=== PATIENT | female | born 1985 | race Caucasian/White ===

== ENCOUNTER 2017-06-18 21:07 | Inpatient (IN) | payer OTHER ==
[2017-06-18 21:59] LABS: Appearance,Urine Clear (Clear); Bilirubin,Urine Negative (Negative); Glucose,Urine (UA) Negative (Negative); Ketones,Urine Negative (Negative); Leukocyte Esterase,Urine Negative (Negative); Nitrite,Urine Negative (Negative); PH, Urine 5.5 (5.0-8.0); Protein,Urine Negative (Negative); Specific Gravity,Urine 1.001 (1.001-1.035); UA Billing (MACRO vs. MICRO) CHEM; Urobilinogen,Urine <2.0 mg/dL (<2.0)
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
[2017-06-18 22:02] LABS: Basophils # (A) 0.1 k/uL (0-0.2); Basophils % (A) 1 %; CH 33.3; CHCM 33.8; Eosinophils # (A) 0.2 k/uL (0-0.7); Eosinophils % (A) 2 %; HCT 39.2 % (34.0-46.0); HDW 2.06; HGB 12.9 gm/dL (11.4-16.0); Luc # (Auto) 0.23; Luc % (Auto) 2; Lymphocytes # (A) 3.4 k/uL (1.0-4.8); Lymphocytes % (A) 34 %; MCH 32.5 pg (25.0-35.0); MCHC 32.8 g/dL (31.0-37.0); MCV 99.1 fL (80.0-100.0); Mean Platelet Volume 7.9; Monocytes # (A) 0.5 k/uL (0-1.0); Monocytes % (A) 5 %; Neutrophils # (A) 5.6 k/uL (1.3-7.7); Neutrophils % (A) 56 %; RBC 3.95 m/uL (3.80-5.40); RDW 13.6 % (11.5-15.5); WBC (Perox) 10.06
[2017-06-18 22:11] LABS: Acetaminophen <10.0 ug/mL; Salicylate <1.0 mg/dL
[2017-06-18 22:13] LABS: Alcohol 135 mg/dL
--- NOTE | 2017-06-18 22:22 | CT ---
EXAM: CT Head Without Intravenous Contrast CLINICAL HISTORY: Headache TECHNIQUE: Axial computed tomography images of the head/brain without intravenous contrast. DLP is 1036.00 mGy-cm. This CT exam was performed using one or more of the following dose reduction techniques: automated exposure control, adjustment of the mA and/or kV according to patient size, and/or use of iterative reconstruction technique. COMPARISON: No relevant prior studies available. FINDINGS: Brain: Unremarkable. No hemorrhage. No significant white matter disease. No edema. Ventricles: Unremarkable. No ventriculomegaly. Bones/joints: Unremarkable. No acute fracture. Soft tissues: Unremarkable. Sinuses: Unremarkable as visualized. No acute sinusitis. Mastoid air cells: Unremarkable as visualized. No mastoid effusion. IMPRESSION: No evidence of acute intracranial hemorrhage or acute transcortical infarct.
[2017-06-19 00:36] LABS: ALT 50 U/L (9-52); AST 30 U/L (14-36); Alkaline Phosphatase 64 U/L (38-126); Anion Gap 14 mmol/L; Blood Urea Nitrogen 11 mg/dL (7-17); Carbon Dioxide 19 mmol/L (22-30); Chloride 110 mmol/L (98-107); Glucose 100 mg/dL (74-99); Non-African American GFR(MDRD) >60 (>60 ml/min/1.73 sqM); Potassium 3.6 mmol/L (3.5-5.1); Sodium 143 mmol/L (137-145); Total Bilirubin 0.2 mg/dL (0.2-1.3); Total Protein 6.9 g/dL (6.3-8.2)
[2017-06-19] MEDS ORDERED: MAG HYDROX/AL HYDROX/SIMETH 30 ML CUP PO PRN (04:56)
[2017-06-19] MEDS ORDERED: ZIPRASIDONE 20 MG VIAL IM PRN (04:56)
[2017-06-19] MEDS ORDERED: MAGNESIUM HYDROXIDE 2,400 MG/10 ML CUP PO PRN (04:56)
[2017-06-19] MEDS ORDERED: LORazepam 2 MG/ML SYRINGE IM PRN (05:00)
[2017-06-19 10:00] LABS: ALT 46 U/L (9-52); AST 28 U/L (14-36); Alkaline Phosphatase 62 U/L (38-126); Basophils % (A) 0 %; Blood Urea Nitrogen 7 mg/dL (7-17); Calcium 9.3 mg/dL (8.4-10.2); Chloride 109 mmol/L (98-107); Eosinophils # (A) 0.1 k/uL (0-0.7); Eosinophils % (A) 2 %; Glucose 98 mg/dL (74-99); HCT 42.3 % (34.0-46.0); HDW 2.05; HGB 13.7 gm/dL (11.4-16.0); Luc # (Auto) 0.23; Luc % (Auto) 3; Lymphocytes # (A) 2.6 k/uL (1.0-4.8); Lymphocytes % (A) 32 %; MCH 32.4 pg (25.0-35.0); MCHC 32.3 g/dL (31.0-37.0); MCV 100.3 fL (80.0-100.0); Mean Platelet Volume 7.3; Monocytes # (A) 0.3 k/uL (0-1.0); Monocytes % (A) 4 %; Neutrophils # (A) 4.8 k/uL (1.3-7.7); Neutrophils % (A) 60 %; Non-African American GFR(MDRD) >60 (>60 ml/min/1.73 sqM); Potassium 4.3 mmol/L (3.5-5.1); RBC 4.22 m/uL (3.80-5.40); Sodium 141 mmol/L (137-145); Total Bilirubin 0.3 mg/dL (0.2-1.3); Total Protein 7.1 g/dL (6.3-8.2); WBC (Perox) 8.13
[2017-06-19 10:15] LABS: Anion Gap 9 mmol/L; Carbon Dioxide 23 mmol/L (22-30)
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
[2017-06-19] MEDS: ARIPiprazole 15 MG TAB PO SCH (11:28)
[2017-06-19] MEDS: ACETAMINOPHEN TAB 325 MG TAB PO PRN (16:37)
[2017-06-20] MEDS: ARIPiprazole 15 MG TAB PO SCH (08:32)
--- NOTE | 2017-06-20 09:42 | P.PN ---
Progress Note - Text Interval history: The patient is found ambulating in the hallway she follows me to an interview room. She reports that she slept last night staff recorded 7 hours. She reports appetite is stable. She continues to demonstrate symptoms of russell. When asked what her goal for the day is she states "organic". She states that she is due to [place] [facility] in [place] very soon but she is not sure which of 2 men she will pick. She describes being on Sirisha alert. She has a variety of disorganized thoughts based on delusions. She is unable to stay on topic despite the question asked. Mental status exam: The patient is a thin shorter statured female. She is dressed in her own clothing the same as yesterday. She has an eyebrow piercing. Eye contact is appropriate speech is fluent pressured. Thought process demonstrates loose associations and flight of ideas. She endorses no auditory or visual hallucinations but appears to continue having delusional thoughts that are disorganized in nature. Insight and judgment is impaired. She demonstrates no abnormal involuntary movements she demonstrates no verbal or physical aggressiveness. Affect is labile. She does not provide a relevant answer when asked if she is having any suicidal ideation. Plan: Bipolar 1 disorder most recent manic with psychosis: Continue Abilify 15 mg daily. She has complied with yesterday's and today's dose. We are waiting a deferral conference. We will continue to monitor her for safety and provide reality orientation when possible and encourage appropriate participation in the milieu. Vital signs and lab results reviewed.
[2017-06-21] MEDS: ARIPiprazole 15 MG TAB PO SCH (08:11)
[2017-06-21] MEDS: ACETAMINOPHEN TAB 325 MG TAB PO PRN (11:15)
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
[2017-06-22] MEDS: ARIPiprazole 15 MG TAB PO SCH (07:59)
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
[2017-06-22] MEDS: ACETAMINOPHEN TAB 325 MG TAB PO PRN (20:03)
[2017-06-23] MEDS: ARIPiprazole 15 MG TAB PO SCH (08:27)
--- NOTE | 2017-06-23 09:37 | P.PN ---
Progress Note - Text Interval history: The patient is found in group she follows me to an interview room. She demonstrates continuous speech and total interrupted. 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 He states that she does found out that she has been featured in numerous movies. She spends several minutes discussing how Onelia Dao is not her name and she refers to herself as Fahad. Notes from over the weekend were reviewed. An attempt was made to increase the Abilify however she was reluctant. She is more accepting of the idea today. Mental status exam: The patient is a short statured thin female she is dressed in the same clothing eye contact is appropriate speech is spontaneous pressured verbose. Thought process demonstrates tangential thinking loose association and flight of ideas. She is focused on grandiose delusions today. Insight and judgment are impaired. She demonstrates no verbal or physical aggressiveness she reports no suicidal or homicidal ideation intent or plan. She is endorsing no auditory or visual hallucinations. She frequently moves while seated in the chair. She demonstrates no abnormal involuntary movements. Affect is labile. Plan: Bipolar 1 disorder most recent manic with psychosis versus schizoaffective disorder bipolar type: The patient will continue on Abilify we will titrate the dose to 20 mg daily. We will verify her deferral status as she does have a court hearing scheduled for tomorrow afternoon. Vital signs reviewed we will continue to monitor her for safety. She continues to demonstrate significant symptoms of russell and psychosis requiring continued hospitalization.
[2017-06-23] MEDS ORDERED: ARIPiprazole 5 MG TAB PO ONE (09:45)
[2017-06-23] MEDS: ACETAMINOPHEN TAB 325 MG TAB PO PRN (11:15)
[2017-06-23 17:18] LABS: Appearance,Urine Clear (Clear); Bilirubin,Urine Negative (Negative); Glucose,Urine (UA) Negative (Negative); Ketones,Urine Negative (Negative); Leukocyte Esterase,Urine Negative (Negative); Nitrite,Urine Negative (Negative); Protein,Urine Negative (Negative); Specific Gravity,Urine 1.003 (1.001-1.035); UA Billing (MACRO vs. MICRO) CHEM; Urobilinogen,Urine <2.0 mg/dL (<2.0)
[2017-06-23] MEDS: LORazepam 1 MG TAB PO PRN (19:17)
--- NOTE | 2017-06-24 09:35 | P.PN ---
Progress Note - Text Interval history: The patient is found in the dining room she follows me to an interview room. For several minutes she speaks about wanting to be called Molly and not Onelia. She has no questions regarding the Abilify we discussed the potential plan of titrating that further or adding another mood stabilizer. She reports she slept last night she states she's been trying to attend groups. Without insight she endorses no racing thoughts. She speaks about a variety of disorganized discharge plans. Mental status exam: The patient is a thin female she is dressed in the same clothing she is a disheveled appearance. Again she has ongoing spontaneous speech she will continue speaking and less interrupted. She interrupts me when I'm speaking. She demonstrates tangential thinking loose associations and flight of ideas. She continues to report persecutory thinking and continues to have grandiose delusions. Insight and judgment are impaired. She demonstrates no abnormal involuntary movements. She demonstrates no verbal or physical aggressiveness. Affect is labile. Plan: Bipolar 1 disorder manic with psychosis versus schizoaffective disorder bipolar type: The patient will continue on the Abilify 20 mg daily we have just increased this medication. We will allow this time to demonstrate efficacy. I will consider titrating the Abilify further and/or adding another mood stabilizer. Based on our conversation today she is only amenable to lithium as an additional medication as she refuses to take Depakote Lamictal Trileptal or Tegretol. Vital signs reviewed. No new lab studies. We'll monitor her for safety and encourage her participation in the milieu. She requires ongoing hospitalization as she requires a structured supervised environment at this time.
[2017-06-24] MEDS: LORazepam 1 MG TAB PO PRN (20:19)
[2017-06-25] MEDS: ACETAMINOPHEN TAB 325 MG TAB PO PRN ×2 (08:05→15:33)
--- NOTE | 2017-06-25 09:26 | P.PN ---
Progress Note - Text Interval history: The patient is found in the hallway she follows me to an interview room. She reports that she slept last evening and it is recorded she slept 7 hours. She indicates her mood is fine she inquires as to when she can be discharged. For the first few moments of the session she was able to answer some questions but as the session progressed she demonstrated ongoing speech which included loose associations and flight of ideas. Again she spontaneously speaks of grandiose themes. She reports that she has been given a house and a helicopter. 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 As a session progressed she appeared more disorganized. Mental status exam: The patient is a thin female she is dressed in the same clothing. She has a disheveled appearance. Eye contact is appropriate she is pleasant she tries to be cooperative. She has ongoing pressured speech demonstrating a disorganized thought process including loose associations and flight of ideas. She is oriented to person place and the correct date. Insight and judgment are impaired. She demonstrates no abnormal involuntary movements. She does have increased psychomotor activity. She demonstrates no verbal or physical aggressiveness. Affect is labile. Plan: Bipolar russell with psychosis versus schizoaffective disorder bipolar type : The patient will continue on Abilify we will titrate the dose to 30 mg daily. She continues to be quite symptomatic and requires continued psychiatric hospitalization and she would not be able to function outside of the hospital in a safe manner. We will continue to monitor her for safety and encourage her participation in the milieu.
[2017-06-25 14:27] VITALS: BMI 19.3
[2017-06-25] MEDS: LORazepam 1 MG TAB PO PRN (15:33)
[2017-06-26] MEDS: ARIPiprazole 15 MG TAB PO SCH (08:22)
--- NOTE | 2017-06-26 09:12 | P.PN ---
Progress Note - Text Interval history: The patient is found in the hallway she follows me to an interview room. She states that she feels more upset today and agitated. He appears more disorganized in conversation compared to yesterday. She states she had a visit from Tobias last evening and he wants her to go to [place] with him. 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 She expresses frustration that people refer to her as if she and describes herself as a unicorn as she was born with both parts. She goes on to describe a number of disorganized delusional beliefs. She was under the belief that she had to be on the mental health unit for 90 days and we clarified the meaning of the deferral agreement. Mental status exam: The patient is a shorter statured thin female she is dressed in the same clothing. Eye contact is appropriate. Today she has ongoing spontaneous speech she has pressured she demonstrates more affect lability including tearfulness. She continues to verbalize grandiose thoughts and persecutory thoughts. Thought process continues to demonstrate flight of ideas. She is redirectable and continues to try to be cooperative. Insight and judgment are impaired. She demonstrates no abnormal involuntary movements. She demonstrates no verbal or physical aggressiveness. Plan: Bipolar 1 disorder manic with psychosis versus schizoaffective disorder bipolar type: The patient will continue on the Abilify which has recently been titrated to 30 mg daily. She continues to be acutely symptomatic and requires continued hospitalization. Vital signs reviewed. Continue to monitor her for safety and encourage her participation in the milieu. The patient is not appropriate for discharge to a lesser level of care at this time.
[2017-06-26] MEDS: LORazepam 1 MG TAB PO PRN ×2 (11:40→20:12)
[2017-06-27] MEDS: ARIPiprazole 15 MG TAB PO SCH (08:45)
--- NOTE | 2017-06-27 09:17 | P.PN ---
Progress Note - Text Interval history: The patient is found in the hallway ambulating, she follows me to an interview room. She states she feels better wearing her hooded sweatshirt as it doesn't look female. 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 She is wearing a cap on her head and she feels that is helping her brain "bounce less" . When discussing discharge planning and where she will follow-up she is able to name several local clinics in individuals who have helped her in the past. She states that [facility]. She continues to report phone contact with various males but again it is unclear the nature of their relationship. She denies having any racing thoughts she endorses no symptoms of psychosis but continues to spontaneously report delusional thoughts. She has no questions or concerns regarding the Abilify. It is documented that she slept 7 hours last night she reports she slept for most of the day yesterday. Mental status exam: The patient is a short statured thin female she is dressed in the same T-shirt and pants she is wearing a hooded sweatshirt and has fashioned a head covering out of what appears to be a shirt eye contact is appropriate. She continues to have ongoing speech she is verbose and mildly pressured at times but does respond to redirection. She continues to try to be cooperative. She demonstrates no verbal or physical aggressiveness. Thought process remains disorganized she demonstrates loose associations flight of ideas. Briefly at the beginning of our session she was more focused and more linear but this did decompensate during the course of the discussion. She reports no suicidal or homicidal ideation. He is endorsing no hallucinations she clearly continues to experience delusional thought. Insight continues to be impaired judgment has improved in the sense that she is compliant with medication and has been directable. Plan: Bipolar 1 disorder russell with psychosis versus schizoaffective disorder bipolar type, the patient will continue on the Abilify 30 mg daily we will continue to monitor for safety and encourage her participation in the milieu she has not yet appropriate for discharge from mental health unit. Vital signs reviewed.
[2017-06-27] MEDS: LORazepam 1 MG TAB PO PRN ×3 (09:19→21:50)
[2017-06-28] MEDS: ARIPiprazole 15 MG TAB PO SCH (08:46)
[2017-06-28] MEDS: LORazepam 1 MG TAB PO PRN ×2 (09:41→17:26)
--- NOTE | 2017-06-28 11:43 | P.PN ---
Progress Note - Text Interval history: The patient is found in the hallway she follows me to an interview room. She reports sleeping last night. She continues to have racing thoughts and finds it difficult to concentrate. She continues to make bizarre bizarre statements as part of her disorganized thought process. She remains compliant with medication vital signs reviewed. She anticipates a visit from her friend Tobias this evening. Mental status exam: The patient is a female appearing her stated age she is dressed in her own clothing which is different than previous days. Eye contact is appropriate she is chewing gum she frequently moves while seated in her chair she is endorsing no suicidal or homicidal ideation. She continues to have pressured spontaneous speech thought process is disorganized she demonstrates tangential thinking and loose associations. She demonstrates no abnormal involuntary movements she demonstrates no verbal or physical aggressiveness. Insight and judgment impaired. Plan: Pili with psychosis: The patient will continue on the Abilify is written we will continue to monitor for safety and encourage her participation in the milieu she requires continued psychiatric hospitalization.
[2017-06-29] MEDS: ARIPiprazole 15 MG TAB PO SCH (08:49)
[2017-06-29] MEDS: LORazepam 1 MG TAB PO PRN ×2 (08:49→18:48)
[2017-06-29] MEDS: OXcarbazepine 150 MG TAB PO SCH ×2 (10:17→21:18)
--- NOTE | 2017-06-29 16:21 | P.PN ---
Progress Note - Text Interval history: The patient is found in her room she follows me to an interview room. She states that she had a good visit with her friend Tobias last evening and he plans on coming up again. Apparently he brought clothing with her and she was able to change she spent several minutes discussing her clothing. She continues to make irrelevant bizarre statements. She does continue to struggle with maintaining a linear thought process. She is eating she reports that she slept last night she is demonstrated no agitated behavior. Mental status exam: The patient's is alert she is wearing a button-down shirt with a tank top over that and wearing included sweatshirt area eye contact is appropriate speech is spontaneous mildly pressured at times she is cooperative and redirectable. Thought process remains disorganized. Continues to verbalize delusional thoughts. She demonstrates no verbal or physical aggressiveness. No abnormal involuntary movements. She denies having any suicidal or homicidal ideation intent or plan. Plan: The patient will continue on the Abilify as ordered. We will initiate Trileptal 150 mg twice daily the plan to titrate this further. This is being used as an additional strategy to stabilize her manic symptoms. We will monitor for safety. Baseline liver enzymes are normal. She is encouraged to continue participating in the milieu.
[2017-06-30] MEDS: OXcarbazepine 150 MG TAB PO SCH (08:57)
[2017-06-30] MEDS: ARIPiprazole 15 MG TAB PO SCH (08:57)
[2017-06-30] MEDS: LORazepam 1 MG TAB PO PRN ×2 (08:58→17:45)
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
[2017-06-30] MEDS: OXcarbazepine 300 MG TAB PO SCH (21:21)
[2017-07-01] MEDS: LORazepam 1 MG TAB PO PRN ×2 (09:05→15:43)
[2017-07-01] MEDS: OXcarbazepine 300 MG TAB PO SCH ×2 (09:05→20:48)
[2017-07-01] MEDS: ARIPiprazole 15 MG TAB PO SCH (09:05)
--- NOTE | 2017-07-01 09:53 | P.PN ---
Progress Note - Text Interval history: The patient is found in the hallway she follows me to an interview room. She reports her mood is good. She states she was able to sleep last night but cannot quantify how much. Staff reports she slept 6 hours. Appetite is stable. She remains compliant with her medications the Abilify and Trileptal. She has no questions regarding her medications today. We discussed her plans upon discharge she states she plans on going to [facility] and [facility]. Mental status exam: The patient is alert she is mildly disheveled hygiene is adequate. She is wearing 3 shirts. Eye contact is appropriate speech is fluent she is less pressured today there is still a disorganized quality to her thought process. She spontaneously verbalizes no delusional thought today but with questioning there continues to be some disorganized delusional thought. She is reporting no suicidal or homicidal ideation. Insight and judgment slowly improving. She demonstrates no verbal or physical aggressiveness no abnormal involuntary movements observed. She is oriented to person place month and year. When asked to name the months of the year backwards she initially states she cannot do it with encouragement she tries she names the months forward then corrects herself and is able to name them backwards although she made several errors but she was aware of those and corrected them. Plan: Symptoms of russell and psychosis, the patient will continue on her current medications. It is hard to discern what the patient's baseline function is although I suspect it is symptomatic. Our goal is to achieve as much organization of thought and reduction of psychosis as possible. In some respects there is improvement noted intermittently. We will continue to monitor her for safety and encourage her participation in the milieu. Vital signs reviewed. We will draw a Trileptal level soon
[2017-07-02] MEDS: OXcarbazepine 300 MG TAB PO SCH ×2 (08:20→20:05)
[2017-07-02] MEDS: ARIPiprazole 15 MG TAB PO SCH (08:20)
--- NOTE | 2017-07-02 08:54 | P.PN ---
Progress Note - Text Interval history: The patient is found in the hallway she follows me to an interview room. She reports that she slept last evening. She was informed yesterday that she is on a police hold. She states that it was not her that is in trouble and that she is Molly and not Onelia. Staff report that the patient has been cooperative she's been compliant with groups she was able to maintain focus during groups. They report no agitated behavior. The patient denies any thoughts of self-harm or harm to others. We discussed initiating Abilify maintena she is agreeable. She is asking to be discharged and we discussed she may be appropriate for discharge as soon as tomorrow. Mental status exam: The patient is alert she is dressed in her own clothing hygiene and adequate speech is fluent spontaneous nonpressured. She is pleasant cooperative. She does have spontaneous speech she will have some tangential thinking speech is mildly pressured but she is redirectable. She reports no suicidal ideation intent or plan no homicidal ideation intent or plan. She demonstrates no verbal or physical aggressiveness. She does frequently move all seated in her chair. No abnormal involuntary movements observed. Affect is expansive at times. Plan: We will initiate Abilify maintena 400 mg today we will draw a Trileptal level today. The patient has improved in the sense that she is able to sit through groups without being intrusive she is directable. She is reporting no thoughts of self-harm or harm to others. She does continue to refute that her name is Onelia especially in the context of discussing her pending legal issue. It appears that she does have a symptomatic baseline in terms of overall function. We will consider discharging her tomorrow if there are adequate supportive services.
[2017-07-02] MEDS ORDERED: ARIPiprazole 400 MG VIAL IM ONE (09:00)
[2017-07-02] MEDS: LORazepam 1 MG TAB PO PRN ×2 (12:54→20:34)
[2017-07-03 06:53] VITALS: BP 112/54; PULSE 91; RESP 18; TEMP 98.2
[2017-07-03] MEDS: ARIPiprazole 15 MG TAB PO SCH (07:59)
[2017-07-03] MEDS: OXcarbazepine 300 MG TAB PO SCH (08:00)
--- NOTE | 2017-07-03 09:07 | P.DS ---
Providers Date of admission: 06/19/17 04:53 Expected date of discharge: 07/03/17 Attending physician: Kendrick Ayala Consults: 06/19/17 04:56 Consult Physician Routine Consulting Provider: Sheba Espinoza Consult Reason/Comments: H &P and medical management Do you want consulting provider notified?: Yes Primary care physician: Stated None - Discharge Diagnosis(es) (1) Schizoaffective disorder, bipolar type Current Visit: Yes Status: Acute Priority: High Hospital Course: Brief summary of admission note: This patient is a 32-year-old single female who was admitted to the mental health unit through the emergency room for manic symptoms and psychosis. The patient was petition in the hospital she was described as being angry pressured and intrusive. She was observed to yell and be aggressive. She was making bizarre statements refuting that her name was Onelia. 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 It is reported that the patient was brought in by police and that she was on a police hold. For full details please refer to my psychiatric evaluation dated 06/19/2017. The patient was originally petition to the hospital I did complete a second clinical certificate. She deferred after meeting with her civil rights attorney. I initiated Abilify and the dosage was titrated ultimately to 30 mg daily. During the course of the admission we initiated Trileptal and titrated to 300 mg twice daily. Trileptal level was drawn yesterday morning. The patient demonstrated slow improvement of manic symptoms she did become more directable her agitation subsided she is much less pressured in speech. Some of her delusional thought content has improved however it appears that she may have some baseline delusional thinking. She has not been demonstrating any verbal or physical aggressiveness. She has been attending groups and has been cooperative. We initiated Abilify maintena 400 mg IM yesterday. The patient is on a police hold and will be taken into custody today. Mental status exam: The patient is a shorter statured thin female appearing her stated age. She is dressed in her own clothing hygiene grooming are adequate. Eye contacts appropriate she seated calmly in the chair she demonstrates no agitated behavior. She reports her mood is good and she is looking forward to being discharged. She is reporting no suicidal or homicidal ideation intent or plan she is endorsing no auditory or visual hallucinations. She denies having any paranoid or persecutory thoughts. There is no evidence that she is experiencing hallucinations at this time but she does appear to have some continued delusional thought. Thought process has improved she is able to answer direct questions much better than when she was first admitted at times there is still some disorganization of thought. Again she is very redirectable. She is demonstrating no verbal or physical aggressiveness. She demonstrates no abnormal involuntary movements. She is oriented to person person as Molly place and date. Affect is demonstrating a more appropriate range. It is less expansive during routine sessions. Impressions 1. Schizoaffective disorder bipolar type, rule out alcohol use disorder rule out marijuana use disorder 2. Limited social support, pending legal charges Plan: The patient will be discharged mental health unit today. She will continue on Abilify 30 mg daily for 2 more weeks she has been given the Abilify maintena injection 400 mg yesterday. Trileptal will be continued at 300 mg twice daily we are awaiting the most recent lab results regarding the level. She will follow with [facility] once in the outpatient setting. She is instructed to abstain from any use of alcohol marijuana or any other illicit drug as this can cause a relapse of symptoms and elevate her safety risk. She is instructed to return to the hospital with any acute safety concerns. At this time she sufficiently stabilized to the point where she does not require continued psychiatric hospitalization. Patient Condition at Discharge: Stable Plan - Discharge Summary New Discharge Prescriptions: New ARIPiprazole [Abilify] 30 mg PO DAILY #14 tab ARIPiprazole IM [Abilify Maintena] 400 mg IM QMONTH #1 vial OXcarbazepine [Trileptal] 300 mg PO BID #60 tab Discharge Medication List ARIPiprazole IM [Abilify Maintena] 400 mg IM QMONTH #1 vial 07/03/17 [Rx] ARIPiprazole [Abilify] 30 mg PO DAILY #14 tab 07/03/17 [Rx] OXcarbazepine [Trileptal] 300 mg PO BID #60 tab 07/03/17 [Rx] Follow up Appointment(s)/Referral(s): [facility] [Outside] - 1 Week (Please complete walk-in intake within 2 business day of hospital discharge. Hours: M, W, TH, FRI- 830-3 - 1030-5) None,Stated [Primary Care Provider] - 1-2 days Patient Instructions/Handouts: Brief Psychotic Disorder (GEN) Activity/Diet/Wound Care/Special Instructions: Activity and diet as tolerated. Avoid the use of street drugs and alcohol. Take medications as prescribed. When you are in need of refills on your medication please contact your medical provider and/or outpatient psychiatrist to have this done. Please go to scheduled outpatient appointment for aftercare treatment. If symptoms return or become worse call the crisis line at [phone] and/or go to the nearest emergency room for an evaluation.
== END 2017-07-03 12:38 | disposition home or self-care (01) | DRG 885 ==
LOC: EC 21:07 → 3MHU 06-19 04:53
PROVIDERS: ADMIT Psychiatry & Neurology Psychiatry; ATTEND Psychiatry & Neurology Psychiatry
DX: F25.0 Schizoaffective disorder, bipolar type (principal); F41.1 Generalized anxiety disorder; F10.129 Alcohol abuse with intoxication, unspecified; F17.200 Nicotine dependence, unspecified, uncomplicated; F43.10 Post-traumatic stress disorder, unspecified; F90.9 Attention-deficit hyperactivity disorder, unspecified type; J45.909 Unspecified asthma, uncomplicated; Y90.6 Blood alcohol level of 120-199 mg/100 ml; Z91.5 Personal history of self-harm
CPT/HCPCS: 36415; 70450; 80053; 80183; 80306; 80320; 81003; 81025; 82075; 83520; 84443; 85025; 99285

== ENCOUNTER → 2018-01-08 | Outpatient (CLI) | payer MEDICAID, OTHER ==
--- NOTE | 2018-01-08 12:58 | XR ---
Left knee HISTORY: Left knee pain 3 views of the left knee Correlation to prior left knee dated 11/16/2009 Exam shows a similar appearance. Postop changes are noted status post anterior cruciate ligament repa ir. Alignment, bone mineralization, joint spaces are stable. Difficult to exclude a small joint effus ion. IMPRESSION: Stable postoperative changes.
== END | disposition home or self-care (01) ==
LOC: RADXRMAIN 10:13
PROVIDERS: ATTEND Nurse Practitioner
DX: M25.562 Pain in left knee (principal); Z98.890 Other specified postprocedural states

== ENCOUNTER → 2018-01-26 | Outpatient (CLI) | payer OTHER ==
[2018-01-26 09:08] LABS: Basophils % (A) 0 %; Eosinophils # (A) 0.1 k/uL (0-0.7); Eosinophils % (A) 2 %; HCT 43.9 % (34.0-46.0); HGB 14.5 gm/dL (11.4-16.0); Lymphocytes % (A) 42 %; MCH 31.6 pg (25.0-35.0); MCHC 33.1 g/dL (31.0-37.0); MCV 95.2 fL (80.0-100.0); Mean Platelet Volume 8.2; Monocytes # (A) 0.3 k/uL (0-1.0); Monocytes % (A) 5 %; Neutrophils # (A) 2.3 k/uL (1.3-7.7); Neutrophils % (A) 49 %; Platelet Count 208 k/uL (150-450); RBC 4.61 m/uL (3.80-5.40); RDW 12.6 % (11.5-15.5); WBC 4.8 k/uL (3.8-10.6)
[2018-01-26 09:19] LABS: INR 1.1 (<1.2); Prothrombin Time 10.4 sec (9.0-12.0)
[2018-01-26 09:24] LABS: ALT 82 U/L (9-52); AST 58 U/L (14-36); Albumin 4.6 g/dL (3.5-5.0); Alkaline Phosphatase 64 U/L (38-126); Anion Gap 14 mmol/L; Blood Urea Nitrogen 7 mg/dL (7-17); Calcium 9.8 mg/dL (8.4-10.2); Carbon Dioxide 21 mmol/L (22-30); Chloride 106 mmol/L (98-107); Glucose 86 mg/dL (74-99); Potassium 4.2 mmol/L (3.5-5.1); Sodium 141 mmol/L (137-145); Total Bilirubin 0.4 mg/dL (0.2-1.3); Total Protein 8.1 g/dL (6.3-8.2)
[2018-01-27 15:26] LABS: Hepatits C Virus RNA DETECTED (Not detected); LOG HCV IU/mL 6.36 (<1.08)
== END | disposition home or self-care (01) ==
LOC: LABWHC1 08:43
PROVIDERS: ATTEND Internal Medicine Infectious Disease
DX: B18.2 Chronic viral hepatitis C (principal)
CPT/HCPCS: 36415; 80053; 85025; 85610; 87522

== ENCOUNTER → 2018-03-19 | Outpatient (CLI) | payer OTHER ==
[2018-03-19 10:15] LABS: Basophils % (A) 1 %; Eosinophils # (A) 0.1 k/uL (0-0.7); Eosinophils % (A) 2 %; HCT 39.7 % (34.0-46.0); HGB 13.2 gm/dL (11.4-16.0); Lymphocytes # (A) 2.7 k/uL (1.0-4.8); Lymphocytes % (A) 43 %; MCH 32.8 pg (25.0-35.0); MCHC 33.2 g/dL (31.0-37.0); MCV 98.5 fL (80.0-100.0); Mean Platelet Volume 7.6; Monocytes # (A) 0.3 k/uL (0-1.0); Monocytes % (A) 4 %; Neutrophils # (A) 3.1 k/uL (1.3-7.7); Neutrophils % (A) 49 %; Platelet Count 210 k/uL (150-450); RBC 4.03 m/uL (3.80-5.40); RDW 12.5 % (11.5-15.5); WBC 6.4 k/uL (3.8-10.6)
[2018-03-19 10:34] LABS: Anion Gap 13 mmol/L; Blood Urea Nitrogen 11 mg/dL (7-17); Calcium 9.4 mg/dL (8.4-10.2); Carbon Dioxide 24 mmol/L (22-30); Chloride 106 mmol/L (98-107); Glucose 81 mg/dL (74-99); Potassium 4.1 mmol/L (3.5-5.1); Sodium 143 mmol/L (137-145)
== END | disposition home or self-care (01) ==
LOC: LABWHC1 09:48 → EEVIPCON 09:48
PROVIDERS: ATTEND Internal Medicine Infectious Disease
DX: B18.2 Chronic viral hepatitis C (principal)
CPT/HCPCS: 36415; 80048; 85025; 87522

== ENCOUNTER → 2018-05-13 | Outpatient (CLI) | payer OTHER ==
[2018-05-13 08:45] LABS: Basophils % (A) 0 %; Eosinophils # (A) 0.1 k/uL (0-0.7); Eosinophils % (A) 2 %; HCT 39.8 % (34.0-46.0); Lymphocytes # (A) 2.1 k/uL (1.0-4.8); Lymphocytes % (A) 41 %; MCH 31.8 pg (25.0-35.0); MCHC 32.5 g/dL (31.0-37.0); MCV 97.9 fL (80.0-100.0); Mean Platelet Volume 7.3; Monocytes # (A) 0.2 k/uL (0-1.0); Monocytes % (A) 4 %; Neutrophils # (A) 2.6 k/uL (1.3-7.7); Neutrophils % (A) 51 %; Platelet Count 215 k/uL (150-450); RBC 4.07 m/uL (3.80-5.40); RDW 11.9 % (11.5-15.5); WBC 5.1 k/uL (3.8-10.6)
[2018-05-13 09:03] LABS: ALT 27 U/L (9-52); AST 20 U/L (14-36); Anion Gap 10 mmol/L; Blood Urea Nitrogen 8 mg/dL (7-17); Calcium 9.4 mg/dL (8.4-10.2); Carbon Dioxide 23 mmol/L (22-30); Chloride 103 mmol/L (98-107); Glucose 87 mg/dL (74-99); Potassium 4.3 mmol/L (3.5-5.1); Sodium 136 mmol/L (137-145)
[2018-05-14 15:36] LABS: Hepatits C Virus RNA DETECTED (Not detected); Hepatits C Virus RNA, Quant <12 IU/mL (<12); LOG HCV IU/mL <1.08 (<1.08)
== END | disposition home or self-care (01) ==
LOC: LABWHC1 08:18
PROVIDERS: ATTEND Internal Medicine Infectious Disease
DX: B18.2 Chronic viral hepatitis C (principal)
CPT/HCPCS: 36415; 80048; 84450; 84460; 85025; 87522

== ENCOUNTER 2018-06-11 08:43 | Emergency (ER) | payer OTHER ==
--- NOTE | 2018-06-11 09:10 | ED ---
General Adult HPI - General Chief complaint: Psychiatric Symptoms Stated complaint: mental health Time Seen by Provider: 06/11/18 09:03 Source: patient, police, RN notes reviewed Mode of arrival: ambulatory Limitations: no limitations - History of Present Illness Initial comments: Patient 33-year-old female presenting here with [place] police for court order psychiatric evaluation. Patient states she is unsure why she is here. She states she's met all of her appointments and has been taking her medications. Patient denies any suicidal or homicidal thoughts or plans. She denies any other complaints. Patient denies any recent fever, chills, shortness of breath, chest pain, back pain, abdominal pain, nausea or vomiting, numbness or tingling, headaches or visual changes, or any other complaints. - Related Data Previous Rx's Medication Instructions Recorded ARIPiprazole IM [Abilify Maintena] 400 mg IM QMONTH #1 vial 07/03/17 ARIPiprazole [Abilify] 30 mg PO DAILY #14 tab 07/03/17 OXcarbazepine [Trileptal] 300 mg PO BID #60 tab 07/03/17 Allergies Allergy/AdvReac Type Severity Reaction Status Date / Time Beef Containing Products Allergy Unknown Verified 06/11/18 08:49 bupropion HCl Allergy Unknown Verified 06/11/18 08:49 [From Wellbutrin] loratadine [From Claritin] Allergy Unknown Verified 06/11/18 08:49 sertraline HCl [From Zoloft] Allergy Unknown Verified 06/11/18 08:49 soybean Allergy Rash/Hives Verified 06/11/18 08:49 venlafaxine [From Effexor] Allergy Unknown Verified 06/11/18 08:49 wheat Allergy Unknown Verified 06/11/18 08:49 egg AdvReac Unknown Verified 06/11/18 08:49 Milk Containing Products AdvReac Unknown Verified 06/11/18 08:49 Review of Systems ROS Statement: Those systems with pertinent positive or pertinent negative responses have been documented in the HPI. ROS Other: All systems not noted in ROS Statement are negative. Past Medical History Past Medical History: Asthma Additional Past Medical History / Comment(s): denies History of Any Multi-Drug Resistant Organisms: MRSA Date of last positivie culture/infection: 10/18/2012 MDRO Source:: Unknown Past Surgical History: Section Additional Past Surgical History / Comment(s): left knee pinning with Dr. Wong secondary to patellar fracture ACL injury history of asthma suspected of having periodic limb movement disorder Past Anesthesia/Blood Transfusion Reactions: No Reported Reaction Past Psychological History: ADD/ADHD, PTSD Smoking Status: Current every day smoker Past Alcohol Use History: Unable to Obtain, Occasional Past Drug Use History: Marijuana General Exam - General Exam Comments Initial Comments: General: The patient is awake and alert, in no distress, and does not appear acutely ill. Eye: extra-ocular movements are intact. No nystagmus. There is normal conjunctiva bilaterally. No signs of icterus. Ears, nose, mouth and throat: There are moist mucous membranes and no oral lesions. Neck: The neck is supple Cardiovascular: There is a regular rate and rhythm. No murmur, rub or gallop is appreciated. Respiratory: Lungs are clear to auscultation, respirations are non-labored, breath sounds are equal. No wheezes, stridor, rales, or rhonchi. Musculoskeletal: Normal ROM, no tenderness. Sensation intact. Neurological: A&O x 3. CN II-XII intact, There are no obvious motor or sensory deficits. Coordination appears grossly intact. Speech is normal. Skin: Skin is warm and dry and no rashes or lesions are noted. Psychiatric: Cooperative, appropriate mood & affect, normal judgment. Limitations: no limitations Course Vital Signs 06/11/18 08:46 Temperature 98 F Pulse Rate 79 Respiratory 16 Rate Blood Pressure 131/79 O2 Sat by Pulse 99 Oximetry Medical Decision Making - Medical Decision Making Patient's urinalysis reviewed by [facility]. They recommend the patient may be discharged home to follow up outpatient. Patient denies any suicidal or homicidal thoughts or plans. Patient is agreeable with plan. Will return for any other concerns. - Lab Data Lab Results 06/11/18 06/11/18 Range/Units 09:40 09:40 Urine HCG, Qual Not Detected (Not Detectd) Urine Opiates Screen Not Detected (NotDetected) Ur Oxycodone Screen Not Detected (NotDetected) Urine Methadone Screen Not Detected (NotDetected) Ur Propoxyphene Screen Not Detected (NotDetected) Ur Barbiturates Screen Not Detected (NotDetected) U Tricyclic Antidepress Detected H (NotDetected) Ur Phencyclidine Scrn Not Detected (NotDetected) Ur Amphetamines Screen Not Detected (NotDetected) U Methamphetamines Scrn Not Detected (NotDetected) U Benzodiazepines Scrn Not Detected (NotDetected) Urine Cocaine Screen Not Detected (NotDetected) U Marijuana (THC) Screen Not Detected (NotDetected) Disposition Clinical Impression: Evaluation by psychiatric service required, Schizoaffective disorder, bipolar type Narrative: Please follow-up with community mental health as discussed. Please return to emergency room if the symptoms increase or worsen or for any other concerns. Disposition: HOME SELF-CARE Condition: Good Instructions: Schizoaffective Disorder (ED) Additional Instructions: Please follow-up with the community mental health as discussed. Please return to emergency room if the symptoms increase or worsen or for any other concerns. Is patient prescribed a controlled substance at d/c from ED?: No Referrals: [facility] [Primary Care Provider] - 1-2 days Time of Disposition: 11:57
[2018-06-11 10:11] LABS: Amphetamine Screen,Urine Not Detected (NotDetected); Barbiturate Screen,Urine Not Detected (NotDetected); Benzodiazepines Screen,Urine Not Detected (NotDetected); Cocaine Screen,Urine Not Detected (NotDetected); Methadone Screen, Urine Not Detected (NotDetected); Opiate Screen,Urine Not Detected (NotDetected); Oxycodone Screen, Urine Not Detected (NotDetected); Phencyclidine Screen,Urine Not Detected (NotDetected); Tricyclic Antidepressant,Urine Detected (NotDetected); Urn Cannabinoid Scrn Not Detected (NotDetected)
[2018-06-11 12:40] VITALS: BP 134/70; PULSE 67; RESP 18; TEMP 96.9
== END 2018-06-11 12:39 | disposition home or self-care (01) ==
LOC: EC 08:43
DX: F25.0 Schizoaffective disorder, bipolar type (principal); F90.9 Attention-deficit hyperactivity disorder, unspecified type; F43.10 Post-traumatic stress disorder, unspecified; F17.200 Nicotine dependence, unspecified, uncomplicated; Z86.14 Personal history of Methicillin resistant Staphylococcus aureus infection; Z91.018 Allergy to other foods; Z88.8 Allergy status to other drugs, medicaments and biological substances; Z91.012 Allergy to eggs; Z91.011 Allergy to milk products
CPT/HCPCS: 80306; 81025; 82075; 99283

== ENCOUNTER → 2018-07-01 | Outpatient (CLI) | payer OTHER | LOC: LABWHC1 08:28 | PROVIDERS: ATTEND Psychiatry & Neurology Psychiatry | DX: T50.905A Adverse effect of unspecified drugs, medicaments and biological substances, initial encounter (principal) | CPT/HCPCS: 36415; 84146 ==

== ENCOUNTER → 2018-08-12 | Outpatient (CLI) | payer OTHER ==
[2018-08-12 15:25] LABS: Basophils % (A) 0 %; Eosinophils # (A) 0.1 k/uL (0-0.7); Eosinophils % (A) 1 %; HGB 12.9 gm/dL (11.4-16.0); Lymphocytes # (A) 2.6 k/uL (1.0-4.8); Lymphocytes % (A) 27 %; MCH 32.7 pg (25.0-35.0); MCHC 32.2 g/dL (31.0-37.0); MCV 101.4 fL (80.0-100.0); Mean Platelet Volume 7.1; Monocytes # (A) 0.6 k/uL (0-1.0); Monocytes % (A) 6 %; Neutrophils # (A) 6.5 k/uL (1.3-7.7); Neutrophils % (A) 66 %; Platelet Count 196 k/uL (150-450); RBC 3.95 m/uL (3.80-5.40); WBC 9.9 k/uL (3.8-10.6)
[2018-08-12 19:00] LABS: Anion Gap 8.7 mmol/L (4.00-12.00); Carbon Dioxide 23.3 mmol/L (21.6-31.8); Potassium 3.9 mmol/L (3.5-5.5)
[2018-08-13 15:31] LABS: Hepatits C Virus RNA Not detected (Not detected); Hepatits C Virus RNA, Quant <12 IU/mL (<12); LOG HCV IU/mL <1.08 (<1.08)
== END ==
LOC: LABWHC1 14:46
PROVIDERS: ATTEND Internal Medicine Infectious Disease
DX: B18.2 Chronic viral hepatitis C (principal)
CPT/HCPCS: 36415; 80048; 85025; 87522

== ENCOUNTER 2020-06-09 18:00 | Emergency (ER) | payer OTHER ==
[2020-06-09 18:16] VITALS: RESP 18; TEMP 98.3
--- NOTE | 2020-06-09 18:47 | ED ---
General Adult HPI - General Chief complaint: Arrhythmia/Palpitations Stated complaint: Chest pain Time Seen by Provider: 06/09/20 18:22 Source: patient Mode of arrival: ambulatory Limitations: no limitations - History of Present Illness Initial comments: Dictation was produced using [employer] dictation software. please excuse any grammatical, word or spelling errors. This patient was cared for during a federal and state declared state of emergency secondary to Covid 19 Chief Complaint: 35-year-old female presents with palpitations and chest pain. History of Present Illness: 35-year-old female she presents today with palpitations and chest pain. Patient states that her symptoms began today. Patient states she has a pressure-like sensation over her sternum. She states that she has been taking these pills given to her by her boyfriend. She does not know exactly what they are. She reports that they're white and she was discussing that there were caffeine pills however she is not entirely sure. She states he started feeling like her heart is racing. Patient has any history of cardiac disease. Denies any worsening of her symptoms with deep inspiration. The ROS documented in this emergency department record has been reviewed and confirmed by me. Those systems with pertinent positive or negative responses have been documented in the HPI. All other systems are other negative and/or noncontributory. PHYSICAL EXAM: General Impression: Alert and oriented x3, not in acute distress HEENT: Normocephalic atraumatic, extra-ocular movements intact, pupils equal and reactive to light bilaterally, mucous membranes moist. Cardiovascular: Heart regular rate and rhythm Chest: Able to complete full sentences, no retractions, no tachypnea Abdomen: abdomen soft, non-tender, non-distended, no organomegaly Musculoskeletal: Pulses present and equal in all extremities, no peripheral edema Motor: no focal deficits noted Neurological: CN II-XII grossly intact, no focal motor or sensory deficits noted Skin: Intact with no visualized rashes Psych: Anxious ED course: 35-year-old female presents with chest pain and palpitations. Patient states she was given a pill from her boyfriend that she thinks is caffeine pills. Patient does drink coffee regularly. Laboratory evaluation obtained. Metabolic panel is unremarkable. Tox labs are negative. No Acidosis. Patient observed in the emergency department with stable vital signs. EKGs benign. Patient be discharged. No concerns for toxicity given that patient ingested pills that were unknown. EKG interpretation: Ventricular rate 85, normal sinus rhythm, DE interval 118, QRS 94, QTC 445. No DE prolongation, no QTC prolongation, no ST or T-wave changes noted. EKG compared to 10/08/2014 showing no changes. Overall, this EKG is unremarkable - Related Data Previous Rx's Medication Instructions Recorded ARIPiprazole IM [Abilify Maintena] 400 mg IM QMONTH #1 vial 07/03/17 ARIPiprazole [Abilify] 30 mg PO DAILY #14 tab 07/03/17 OXcarbazepine [Trileptal] 300 mg PO BID #60 tab 07/03/17 Allergies Allergy/AdvReac Type Severity Reaction Status Date / Time Beef Containing Products Allergy Unknown Verified 06/09/20 18:16 bupropion HCl Allergy Unknown Verified 06/09/20 18:16 [From Wellbutrin] loratadine [From Claritin] Allergy Unknown Verified 06/09/20 18:16 sertraline HCl [From Zoloft] Allergy Unknown Verified 06/09/20 18:16 soybean Allergy Rash/Hives Verified 06/09/20 18:16 venlafaxine [From Effexor] Allergy Unknown Verified 06/09/20 18:16 wheat Allergy Unknown Verified 06/09/20 18:16 egg AdvReac Unknown Verified 06/09/20 18:16 Milk Containing Products AdvReac Unknown Verified 06/09/20 18:16 Review of Systems ROS Statement: Those systems with pertinent positive or pertinent negative responses have been documented in the HPI. ROS Other: All systems not noted in ROS Statement are negative. Past Medical History Past Medical History: Asthma Additional Past Medical History / Comment(s): denies History of Any Multi-Drug Resistant Organisms: MRSA Date of last positivie culture/infection: 10/18/2012 MDRO Source:: Unknown Past Surgical History: Section Additional Past Surgical History / Comment(s): left knee pinning with Dr. Wong secondary to patellar fracture ACL injury Past Anesthesia/Blood Transfusion Reactions: No Reported Reaction Past Psychological History: ADD/ADHD, PTSD Smoking Status: Current every day smoker Past Alcohol Use History: None Reported Past Drug Use History: None Reported General Exam Limitations: no limitations Course Vital Signs 06/09/20 18:13 Temperature 98.3 F Pulse Rate 100 Respiratory 18 Rate Blood Pressure 137/87 O2 Sat by Pulse 99 Oximetry Medical Decision Making - Lab Data Result diagrams: 06/09/20 19:10 Lab Results 06/09/20 06/09/20 06/09/20 Range/Units 19:09 19:10 19:10 Sodium 133 L (137-145) mmol/L Potassium 4.8 (3.5-5.1) mmol/L Chloride 104 (98-107) mmol/L Carbon Dioxide 20 L (22-30) mmol/L Anion Gap 9 mmol/L BUN 3 L (7-17) mg/dL Creatinine 0.47 L (0.52-1.04) mg/dL Est GFR (CKD-EPI)AfAm >90 (>60 ml/min/1.73 sqM) Est GFR (CKD-EPI)NonAf >90 (>60 ml/min/1.73 sqM) Glucose 110 H (74-99) mg/dL Calcium 9.4 (8.4-10.2) mg/dL Magnesium 1.8 (1.6-2.3) mg/dL Urine HCG, Qual Not Detected (Not Detectd) Salicylates <1.0 mg/dL Urine Opiates Screen Not Detected (NotDetected) Ur Oxycodone Screen Not Detected (NotDetected) Urine Methadone Screen Not Detected (NotDetected) Ur Propoxyphene Screen Not Detected (NotDetected) Acetaminophen <10.0 ug/mL Ur Barbiturates Screen Not Detected (NotDetected) U Tricyclic Antidepress Not Detected (NotDetected) Ur Phencyclidine Scrn Not Detected (NotDetected) Ur Amphetamines Screen Not Detected (NotDetected) U Methamphetamines Scrn Not Detected (NotDetected) U Benzodiazepines Scrn Not Detected (NotDetected) Urine Cocaine Screen Not Detected (NotDetected) U Marijuana (THC) Screen Not Detected (NotDetected) Disposition Clinical Impression: Palpitations Disposition: HOME SELF-CARE Condition: Good Instructions (If sedation given, give patient instructions): Heart Palpitations (ED) Is patient prescribed a controlled substance at d/c from ED?: No Referrals: [facility] [Primary Care Provider] - 1-2 days Time of Disposition: 20:08
[2020-06-09 19:42] LABS: Acetaminophen <10.0 ug/mL; African American GFR (CKD) >90 (>60 ml/min/1.73 sqM); Anion Gap 9 mmol/L; Blood Urea Nitrogen 3 mg/dL (7-17); Calcium 9.4 mg/dL (8.4-10.2); Carbon Dioxide 20 mmol/L (22-30); Chloride 104 mmol/L (98-107); Glucose 110 mg/dL (74-99); Magnesium 1.8 mg/dL (1.6-2.3); Non-African American GFR(CKD) >90 (>60 ml/min/1.73 sqM); Salicylate <1.0 mg/dL; Sodium 133 mmol/L (137-145)
[2020-06-09 19:47] LABS: Amphetamine Screen,Urine Not Detected (NotDetected); Barbiturate Screen,Urine Not Detected (NotDetected); Benzodiazepines Screen,Urine Not Detected (NotDetected); Cocaine Screen,Urine Not Detected (NotDetected); Methadone Screen, Urine Not Detected (NotDetected); Opiate Screen,Urine Not Detected (NotDetected); Oxycodone Screen, Urine Not Detected (NotDetected); Phencyclidine Screen,Urine Not Detected (NotDetected); Tricyclic Antidepressant,Urine Not Detected (NotDetected); Urn Cannabinoid Scrn Not Detected (NotDetected)
[2020-06-09 20:02] LABS: Potassium 4.8 mmol/L (3.5-5.1)
[2020-06-09 20:08] LABS: Basophils % (A) 0 %; Eosinophils # (A) 0.1 k/uL (0-0.7); Eosinophils % (A) 1 %; HCT 37.7 % (34.0-46.0); HGB 12.5 gm/dL (11.4-16.0); Lymphocytes # (A) 1.7 k/uL (1.0-4.8); Lymphocytes % (A) 24 %; MCH 32.4 pg (25.0-35.0); MCHC 33.1 g/dL (31.0-37.0); MCV 97.8 fL (80.0-100.0); Mean Platelet Volume 7.1; Monocytes # (A) 0.3 k/uL (0-1.0); Monocytes % (A) 5 %; Neutrophils # (A) 4.9 k/uL (1.3-7.7); Neutrophils % (A) 69 %; Platelet Count 267 k/uL (150-450); RBC 3.85 m/uL (3.80-5.40); RDW 12.4 % (11.5-15.5); WBC 7.1 k/uL (3.8-10.6)
[2020-06-09 20:15] VITALS: BP 125/80; PULSE 90
== END 2020-06-09 20:15 | disposition home or self-care (01) ==
LOC: EC 18:00
DX: R00.2 Palpitations (principal); R07.9 Chest pain, unspecified; F17.200 Nicotine dependence, unspecified, uncomplicated; Z91.018 Allergy to other foods; Z88.8 Allergy status to other drugs, medicaments and biological substances; Z91.011 Allergy to milk products; Z91.012 Allergy to eggs
CPT/HCPCS: 36415; 93005; 80048; 83735; 85025; 81025; 80306; 83520; 99285; G0480; 80329

== ENCOUNTER 2020-12-24 18:59 | Emergency (ER) | payer OTHER ==
[2020-12-24 19:04] VITALS: RESP 18; TEMP 97.6
--- NOTE | 2020-12-24 19:23 | ED ---
General Adult HPI - General Chief complaint: Skin/Abscess/Foreign Body Stated complaint: Cough, Vomiting Time Seen by Provider: 12/24/20 19:05 Source: patient Mode of arrival: ambulatory Limitations: no limitations - History of Present Illness Initial comments: Dictation was produced using [employer] dictation software. please excuse any grammatical, word or spelling errors. This patient was cared for during a federal and state declared state of emergency secondary to Covid 19 Chief Complaint: 35-year-old female past medical history of psychiatric disease. She states she's had a truncal rash for several weeks. History of Present Illness: 5-year-old female presents with chronic rash. She's had this rash for several weeks. She had a prior to being administered the Covid 19 vaccine. States that it's smiley pruritic. She lives at a transitional home. She's been living at transitional for the last several years. Denies any numbness distally paresthesia of the extremities. Denies any mouth involvement. She changed her soap. The ROS documented in this emergency department record has been reviewed and confirmed by me. Those systems with pertinent positive or negative responses have been documented in the HPI. All other systems are other negative and/or noncontributory. PHYSICAL EXAM: General Impression: Alert and oriented x3, not in acute distress HEENT: Normocephalic atraumatic, extra-ocular movements intact, pupils equal and reactive to light bilaterally, mucous membranes moist. Cardiovascular: Heart regular rate and rhythm Chest: Able to complete full sentences, no retractions, no tachypnea Abdomen: abdomen soft, non-tender, non-distended, no organomegaly Musculoskeletal: Pulses present and equal in all extremities, no peripheral edema Motor: no focal deficits noted Neurological: CN II-XII grossly intact, no focal motor or sensory deficits noted Skin: Papular rash, seeing the abdomen, chest, back and proximal thighs, no rash involvement of the palms. Or oral mucosa. Psych: Normal affect and mood ED course: 35 yo female clinical presentation consistent with nonspecific dermatitis. May be secondary to soap changes. Given its location is likely contact dermatitis. Some mucous membrane involvement. No signs or symptoms of life-threatening rash. Vital signs upon arrival are within acceptable limits. Patient discharged. She is given prescription for Benadryl when necessary pruritus. - Related Data Previous Rx's Medication Instructions Recorded ARIPiprazole IM [Abilify Maintena] 400 mg IM QMONTH #1 vial 07/03/17 ARIPiprazole [Abilify] 30 mg PO DAILY #14 tab 07/03/17 OXcarbazepine [Trileptal] 300 mg PO BID #60 tab 07/03/17 diphenhydrAMINE [Benadryl] 25 mg PO BID PRN #12 capsule 12/24/20 Allergies Allergy/AdvReac Type Severity Reaction Status Date / Time Beef Containing Products Allergy Unknown Verified 12/24/20 19:05 bupropion HCl Allergy Unknown Verified 12/24/20 19:05 [From Wellbutrin] loratadine [From Claritin] Allergy Unknown Verified 12/24/20 19:05 sertraline HCl [From Zoloft] Allergy Unknown Verified 12/24/20 19:05 soybean Allergy Rash/Hives Verified 12/24/20 19:05 venlafaxine [From Effexor] Allergy Unknown Verified 12/24/20 19:05 wheat Allergy Unknown Verified 12/24/20 19:05 egg AdvReac Unknown Verified 12/24/20 19:05 Milk Containing Products AdvReac Unknown Verified 12/24/20 19:05 Review of Systems ROS Statement: Those systems with pertinent positive or pertinent negative responses have been documented in the HPI. ROS Other: All systems not noted in ROS Statement are negative. Past Medical History Past Medical History: Asthma Additional Past Medical History / Comment(s): denies History of Any Multi-Drug Resistant Organisms: MRSA Date of last positivie culture/infection: 10/18/2012 MDRO Source:: Unknown Past Surgical History: Section Additional Past Surgical History / Comment(s): left knee pinning with Dr. Wong secondary to patellar fracture ACL injury Past Anesthesia/Blood Transfusion Reactions: No Reported Reaction Past Psychological History: ADD/ADHD, PTSD Smoking Status: Current every day smoker Past Alcohol Use History: None Reported Past Drug Use History: None Reported General Exam Limitations: no limitations Course Vital Signs 12/24/20 19:01 Temperature 97.6 F Pulse Rate 90 Respiratory 18 Rate Blood Pressure 140/91 O2 Sat by Pulse 100 Oximetry Disposition Clinical Impression: Rash Disposition: HOME SELF-CARE Condition: Good Instructions (If sedation given, give patient instructions): Acute Rash (ED) Prescriptions: diphenhydrAMINE [Benadryl] 25 mg PO BID PRN #12 capsule PRN Reason: Itching Is patient prescribed a controlled substance at d/c from ED?: No Referrals: David Rojo MD [STAFF PHYSICIAN] - 1-2 days Time of Disposition: 19:23
[2020-12-24 19:49] VITALS: BP 128/100; PULSE 87
== END 2020-12-24 19:49 | disposition home or self-care (01) ==
LOC: EC 18:59
DX: R21 Rash and other nonspecific skin eruption (principal); F17.200 Nicotine dependence, unspecified, uncomplicated; Z88.8 Allergy status to other drugs, medicaments and biological substances; Z91.011 Allergy to milk products; Z91.012 Allergy to eggs; Z91.018 Allergy to other foods; Z91.048 Other nonmedicinal substance allergy status; Z86.14 Personal history of Methicillin resistant Staphylococcus aureus infection
CPT/HCPCS: 99282

== ENCOUNTER 2024-12-31 12:56 | Emergency (ER) | payer OTHER ==
--- NOTE | 2024-12-31 13:10 | ED ---
General Adult HPI - General Source: patient, RN notes reviewed Mode of arrival: ambulatory Limitations: no limitations <Marita Lester - Last Filed: 12/31/24 13:09> <Marlene Bunch - Last Filed: 12/31/24 16:03> - General Stated complaint: Medication issue Time Seen by Provider: 12/31/24 13:09 - History of Present Illness Initial comments: Quick note: 39-year-old female presented to the ER for evaluation of the shakes. She reports for the past 6 weeks she has been also having hot flashes. Patient gets Prolyxal biweekly and recently had an increased dose. (Marita Lester) This is a 39-year-old female with a history of schizophrenia and anxiety presenting to emergency department for tremors. Patient states that over the past few months she has been experiencing intermittent tremors in addition to worsening anxiety. Patient receives a injection of Prolyxal every other week with a recent increase in dose a few months ago. Patient believes that she may be having side effects due to this. Patient is denying suicidal, homicidal ideation, auditory visual hallucinations. She denies difficulty breathing, chest pain, heart palpitations, dizziness, lightheadedness. Denies recent falls or injuries. Denies confusion or focal neurological deficits. Denies drug or alcohol use. (Marlene Bunch) - Related Data Previous Rx's Medication Instructions Recorded ARIPiprazole IM [Abilify Maintena] 400 mg IM QMONTH #1 vial 07/03/17 ARIPiprazole [Abilify] 30 mg PO DAILY #14 tab 07/03/17 OXcarbazepine [Trileptal] 300 mg PO BID #60 tab 07/03/17 diphenhydrAMINE [Benadryl] 25 mg PO BID PRN #12 capsule 12/24/20 Allergies Allergy/AdvReac Type Severity Reaction Status Date / Time Beef Containing Products Allergy Unknown Verified 12/24/20 19:05 bupropion HCl Allergy Unknown Verified 12/24/20 19:05 [From Wellbutrin] loratadine [From Claritin] Allergy Unknown Verified 12/24/20 19:05 sertraline HCl [From Zoloft] Allergy Unknown Verified 12/24/20 19:05 soybean Allergy Rash/Hives Verified 12/24/20 19:05 venlafaxine [From Effexor] Allergy Unknown Verified 12/24/20 19:05 wheat Allergy Unknown Verified 12/24/20 19:05 egg AdvReac Unknown Verified 12/24/20 19:05 Milk Containing Products AdvReac Unknown Verified 12/24/20 19:05 (Dairy) [Milk Containing Products] Review of Systems ROS Other: All systems not noted in ROS Statement are negative. <Marita Lester - Last Filed: 12/31/24 13:09> ROS Other: All systems not noted in ROS Statement are negative. <Marlene Bunch - Last Filed: 12/31/24 16:03> ROS Statement: Those systems with pertinent positive or pertinent negative responses have been documented in the HPI. Past Medical History Past Medical History: Asthma Additional Past Medical History / Comment(s): denies History of Any Multi-Drug Resistant Organisms: MRSA Date of last positivie culture/infection: 10/18/2012 MDRO Source:: Unknown Past Surgical History: Section Additional Past Surgical History / Comment(s): left knee pinning with Dr. Wong secondary to patellar fracture ACL injury Past Anesthesia/Blood Transfusion Reactions: No Reported Reaction Past Psychological History: ADD/ADHD, PTSD Smoking Status: Current every day smoker Past Alcohol Use History: None Reported Past Drug Use History: None Reported <Marita Lester - Last Filed: 12/31/24 13:09> General Exam Limitations: no limitations <Marita Lester - Last Filed: 12/31/24 13:09> General appearance: alert, in no apparent distress Eye exam: Present: normal appearance, PERRL, EOMI. Absent: scleral icterus, conjunctival injection, periorbital swelling Neck exam: Present: normal inspection. Absent: tenderness, meningismus, lymphadenopathy Respiratory exam: Present: normal lung sounds bilaterally. Absent: respiratory distress, wheezes, rales, rhonchi, stridor Cardiovascular Exam: Present: regular rate, normal rhythm, normal heart sounds. Absent: systolic murmur, diastolic murmur, rubs, gallop, clicks GI/Abdominal exam: Present: soft, normal bowel sounds. Absent: distended, tenderness, guarding, rebound, rigid Extremities exam: Present: normal inspection, full ROM, normal capillary refill. Absent: tenderness, pedal edema, joint swelling, calf tenderness Back exam: Present: normal inspection Psychiatric exam: Present: anxious, flat affect. Absent: normal affect, normal mood, depressed, homicidal ideation, suicidal ideation Expanded Focused psych exam: Absent: paranoid, restlessness <Marlene Bunch - Last Filed: 12/31/24 16:03> - General Exam Comments Initial Comments: Visual Physical Exam Vital signs reviewed General: Well-appearing, nontoxic, no acute distress. Head: Normocephalic, atraumatic Eyes: PERRLA, EOMI ENT: Airway patent Chest: Nonlabored breathing Skin: No visual rash, normal skin tone Neuro: Alert and oriented 3 Musculoskeletal: No gross abnormalities (Marita Lester) Course Vital Signs 12/31/24 13:06 Temperature 97.8 F Pulse Rate 107 H Respiratory 18 Rate Blood Pressure 146/73 O2 Sat by Pulse 96 Oximetry Medical Decision Making <Marita Lester - Last Filed: 12/31/24 13:09> - Lab Data Result diagrams: 12/31/24 15:26 12/31/24 15:26 <Marlene Bunch - Last Filed: 12/31/24 16:03> - Medical Decision Making I performed the quick note portion of this chart. Electronically signed by Marita Lester PA-C (Marita Lester) Was pt. sent in by a medical professional or institution ([facility], [employer], urgent care, hospital, or assisted...) When possible be specific @ -No Did you speak to anyone other than the patient for history (EMS, parent, family, police, friend...)? What history was obtained from this source @ -No Did you review nursing and triage notes (agree or disagree)? Why? @ -I reviewed and agree with nursing and triage notes Were old charts reviewed (outside hosp., previous admission, EMS record, old EKG, old radiological studies, urgent care reports/EKG's, assisted records)? Report findings @ -No old charts were reviewed Differential Diagnosis (chest pain, altered mental status, abdominal pain women, abdominal pain men, vaginal bleeding, weakness, fever, dyspnea, syncope, headache, dizziness, GI bleed, back pain, seizure, CVA, palpatations, mental health, musculoskeletal)? @ -Differential Mental Health Depression, anxiety, bipolar, psychosis, schizophrenia, borderline personality, situational depression, adjustment disorder, behavioral disorder, brain tumor, malingering, substance abuse, encephalopathy, medication reaction, dementia, hypothyroidism, degenerative neurologic disorder, lupus.... This is not meant to be all-inclusive list EKG interpreted by me (3pts min.). @ -None X-rays interpreted by me (1pt min.). @ -None done CT interpreted by me (1pt min.). @ -None done U/S interpreted by me (1pt. min.). @ -None done What testing was considered but not performed or refused? (CT, X-rays, U/S, labs)? Why? @ -None What meds were considered but not given or refused? Why? @ -None Did you discuss the management of the patient with other professionals (professionals i.e. , PA, [employer], lab, RT, psych nurse, psych social worker, supply aide, teacher, consular officer, nurse case management)? Give summary @ -No Was smoking cessation discussed for >3mins.? @ -No Was critical care preformed (if so, how long)? @ -No Were there social determinants of health that impacted care today? How? (Homelessness, low income, unemployed, alcoholism, drug addiction, transportation, low edu. Level, literacy, decrease access to med. care, retirement, rehab)? @ -No Was there de-escalation of care discussed even if they declined (Discuss DNR or withdrawal of care, Hospice)? DNR status @ -No What co-morbidities impacted this encounter? (DM, HTN, Smoking, COPD, CAD, Cancer, CVA, ARF, Chemo, Hep., AIDS, mental health diagnosis, sleep apnea, morbi d obesity)? @ -None Was patient admitted / discharged? Hospital course, mention meds given and route , prescriptions, significant lab abnormalities, going to OR and other pertinent info. @ -discharged. 39-year-old female presenting for evaluation of tremors. Patient was originally evaluated in the emergency department waiting room as a quick note for laboratory testing was ordered. On my evaluation of the patient she is resting comfortably. Neurological examination completed with no evidence of tremor on intentional movement. Patient's tremor seems to be self-induced as this increased during my discussion with the patient. Overall she is well- appearing. She is provided with dose of Ativan and will undergo laboratory testing. CBC and CMP unremarkable. Mild elevation in LFTs. Patient stable for discharge with appropriate follow-up with psychiatrist. Recommend that patient have LFTs rechecked in upcoming weeks to ensure resolution. Case discussed with Dr. Morales Undiagnosed new problem with uncertain prognosis? @ -No Drug Therapy requiring intensive monitoring for toxicity (Heparin, Nitro, Insulin, Cardizem)? @ -No Were any procedures done? @ -No Diagnosis/symptom? @ -anxiety Acute, or Chronic, or Acute on Chronic? @ -acute Uncomplicated (without systemic symptoms) or Complicated (systemic symptoms)? @ -uncomplicated Side effects of treatment? @ -No Exacerbation, Progression, or Severe Exacerbation? @ -No Poses a threat to life or bodily function? How? (Chest pain, [place], CA, pneumonia, PE, COPD, DKA, ARF, appy, cholecystitis, CVA, Diverticulitis, Homicidal, Suicidal, threat to staff... and all critical care pts) @ -No (Marlene Bunch) - Lab Data Lab Results 12/31/24 12/31/24 Range/Units 15:26 15:26 WBC 7.4 (3.8-10.6) k/uL RBC 4.32 (3.80-5.40) m/uL Hgb 14.9 (11.4-16.0) gm/dL Hct 44.3 (34.0-46.0) % MCV 102.8 H (80.0-100.0) fL MCH 34.5 (25.0-35.0) pg MCHC 33.6 (31.0-37.0) g/dL RDW 11.6 (11.5-15.5) % Plt Count 268 (150-450) k/uL MPV 8.4 Neutrophils % 63 % Lymphocytes % 26 % Monocytes % 7 % Eosinophils % 1 % Basophils % 0 % Neutrophils # 4.7 (1.3-7.7) k/uL Lymphocytes # 1.9 (1.0-4.8) k/uL Monocytes # 0.5 (0-1.0) k/uL Eosinophils # 0.1 (0-0.7) k/uL Basophils # 0.0 (0-0.2) k/uL Sodium 135 L (137-145) mmol/L Potassium 3.5 (3.5-5.1) mmol/L Chloride 98 (98-107) mmol/L Carbon Dioxide 25 (22-30) mmol/L Anion Gap 12 mmol/L BUN 9 (7-17) mg/dL Creatinine 0.68 (0.52-1.04) mg/dL Est GFR (CKD-EPI)AfAm >90 (>60 ml/min/1.73 sqM) Est GFR (CKD-EPI)NonAf >90 (>60 ml/min/1.73 sqM) Glucose 116 H (74-99) mg/dL Calcium 9.7 (8.4-10.2) mg/dL Total Bilirubin 0.5 (0.2-1.3) mg/dL AST 48 H (14-36) U/L ALT 40 H (4-34) U/L Alkaline Phosphatase 85 (38-126) U/L Total Protein 8.0 (6.3-8.2) g/dL Albumin 4.8 (3.5-5.0) g/dL Disposition <Marita Lester - Last Filed: 12/31/24 13:09> Is patient prescribed a controlled substance at d/c from ED?: No Time of Disposition: 16:00 <Marlene Bunch - Last Filed: 12/31/24 16:03> Clinical Impression: Anxiety Disposition: HOME SELF-CARE Condition: Good Instructions (If sedation given, give patient instructions): Anxiety (ED) Additional Instructions: Please return to the Emergency Department if symptoms worsen or any other conc erns. As discussed, follow-up with your psychiatrist in the next 1 to 3 days for further evaluation and potential medication adjustment. Referrals: Niya Hopper MD [Primary Care Provider] - 1-2 days
[2024-12-31] MEDS: LORazepam 2 MG/ML INJ IV STA (15:29)
[2024-12-31 15:40] LABS: Basophils % (A) 0 %; Eosinophils # (A) 0.1 k/uL (0-0.7); Eosinophils % (A) 1 %; HCT 44.3 % (34.0-46.0); HGB 14.9 gm/dL (11.4-16.0); Lymphocytes # (A) 1.9 k/uL (1.0-4.8); Lymphocytes % (A) 26 %; MCH 34.5 pg (25.0-35.0); MCHC 33.6 g/dL (31.0-37.0); MCV 102.8 fL (80.0-100.0); Mean Platelet Volume 8.4; Monocytes # (A) 0.5 k/uL (0-1.0); Monocytes % (A) 7 %; Neutrophils # (A) 4.7 k/uL (1.3-7.7); Neutrophils % (A) 63 %; Platelet Count 268 k/uL (150-450); RBC 4.32 m/uL (3.80-5.40); RDW 11.6 % (11.5-15.5); WBC 7.4 k/uL (3.8-10.6)
[2024-12-31 15:54] LABS: ALT 40 U/L (4-34); AST 48 U/L (14-36); African American GFR (CKD) >90 (>60 ml/min/1.73 sqM); Albumin 4.8 g/dL (3.5-5.0); Alkaline Phosphatase 85 U/L (38-126); Anion Gap 12 mmol/L; Blood Urea Nitrogen 9 mg/dL (7-17); Calcium 9.7 mg/dL (8.4-10.2); Carbon Dioxide 25 mmol/L (22-30); Chloride 98 mmol/L (98-107); Glucose 116 mg/dL (74-99); Non-African American GFR(CKD) >90 (>60 ml/min/1.73 sqM); Potassium 3.5 mmol/L (3.5-5.1); Sodium 135 mmol/L (137-145); Total Bilirubin 0.5 mg/dL (0.2-1.3)
[2024-12-31 16:19] VITALS: BP 129/88; PULSE 110; RESP 19; TEMP 98.6
== END 2024-12-31 16:22 | disposition home or self-care (01) ==
LOC: EEVIPCON 12:56 → EC 12:56
DX: F41.9 Anxiety disorder, unspecified (principal); R79.89 Other specified abnormal findings of blood chemistry; F17.200 Nicotine dependence, unspecified, uncomplicated; Z88.8 Allergy status to other drugs, medicaments and biological substances; Z91.012 Allergy to eggs; Z91.018 Allergy to other foods; Z91.011 Allergy to milk products
CPT/HCPCS: 36415; 80053; 85025; 99284; 96374; J2060

== ENCOUNTER 2025-01-02 18:16 | Emergency (ER) | payer OTHER ==
[2025-01-02 18:22] VITALS: BP 144/112; PULSE 95; RESP 18; TEMP 97.5
--- NOTE | 2025-01-02 18:43 | ED ---
Anxiety HPI - General Chief Complaint: Anxiety Stated Complaint: Anxiety Time Seen by Provider: 01/02/25 18:28 Source: patient, RN notes reviewed Mode of arrival: ambulatory - History of Present Illness MD Complaint: anxiety, heart racing Onset/Timin -: week(s) Previous History of Same: Yes Quality: constant Provoking factors: medication change Improves With: nothing - Related Data Home Medications: Previous Rx's Medication Instructions Recorded ARIPiprazole IM [Abilify Maintena] 400 mg IM QMONTH #1 vial 07/03/17 ARIPiprazole [Abilify] 30 mg PO DAILY #14 tab 07/03/17 OXcarbazepine [Trileptal] 300 mg PO BID #60 tab 07/03/17 diphenhydrAMINE [Benadryl] 25 mg PO BID PRN #12 capsule 12/24/20 Allergies/Adverse Reactions: Allergies Allergy/AdvReac Type Severity Reaction Status Date / Time Beef Containing Products Allergy Unknown Verified 12/24/20 19:05 bupropion HCl Allergy Unknown Verified 12/24/20 19:05 [From Wellbutrin] fluphenazine [From Prolixin] Allergy Anaphylaxis Verified 01/02/25 18:22 loratadine [From Claritin] Allergy Unknown Verified 12/24/20 19:05 sertraline HCl [From Zoloft] Allergy Unknown Verified 12/24/20 19:05 soybean Allergy Rash/Hives Verified 12/24/20 19:05 venlafaxine [From Effexor] Allergy Unknown Verified 12/24/20 19:05 wheat Allergy Unknown Verified 12/24/20 19:05 egg AdvReac Unknown Verified 12/24/20 19:05 Milk Containing Products AdvReac Unknown Verified 12/24/20 19:05 (Dairy) [Milk Containing Products] Review of Systems ROS Statement: Those systems with pertinent positive or pertinent negative responses have been documented in the HPI. ROS Other: All systems not noted in ROS Statement are negative. Past Medical History Past Medical History: Asthma Additional Past Medical History / Comment(s): denies History of Any Multi-Drug Resistant Organisms: MRSA Date of last positivie culture/infection: 10/18/2012 MDRO Source:: Unknown Past Surgical History: Section Additional Past Surgical History / Comment(s): left knee pinning with Dr. Wong secondary to patellar fracture ACL injury Past Anesthesia/Blood Transfusion Reactions: No Reported Reaction Past Psychological History: ADD/ADHD, Anxiety, PTSD Smoking Status: Current every day smoker Past Alcohol Use History: None Reported Past Drug Use History: None Reported General Exam Limitations: no limitations General appearance: alert, in no apparent distress Head exam: Present: atraumatic, normocephalic, normal inspection Eye exam: Present: normal appearance, PERRL, EOMI. Absent: scleral icterus, conjunctival injection, periorbital swelling ENT exam: Present: normal exam, mucous membranes moist Neck exam: Present: normal inspection. Absent: tenderness, meningismus, lymphadenopathy Respiratory exam: Present: normal lung sounds bilaterally. Absent: respiratory distress, wheezes, rales, rhonchi, stridor Cardiovascular Exam: Present: regular rate, normal rhythm, normal heart sounds. Absent: systolic murmur, diastolic murmur, rubs, gallop, clicks GI/Abdominal exam: Present: soft, normal bowel sounds. Absent: distended, tenderness, guarding, rebound, rigid Extremities exam: Present: normal inspection, full ROM, normal capillary refill, other (Minor tremor in hands noted. Otherwise no dystonic movements or tardive dyskinesia). Absent: tenderness, pedal edema, joint swelling, calf tenderness Back exam: Present: normal inspection Neurological exam: Present: alert, oriented X3, CN II-XII intact Psychiatric exam: Present: normal affect, normal mood Skin exam: Present: warm, dry, intact, normal color. Absent: rash Course Vital Signs 01/02/25 18:18 Temperature 97.5 F L Pulse Rate 95 Respiratory 18 Rate Blood Pressure 144/112 O2 Sat by Pulse 98 Oximetry Medical Decision Making - Medical Decision Making Was pt. sent in by a medical professional or institution (, PA, LABOR ARBITRATOR, urgent care, hospital, or snf...) When possible be specific @ -[No] Did you speak to anyone other than the patient for history (EMS, parent, family, police, friend...)? What history was obtained from this source @ -[No] Did you review nursing and triage notes (agree or disagree)? Why? @ -[I reviewed and agree with nursing and triage notes] Were old charts reviewed (outside hosp., previous admission, EMS record, old EKG, old radiological studies, urgent care reports/EKG's, snf records)? Report findings @ -[No old charts were reviewed] Differential Diagnosis (chest pain, altered mental status, abdominal pain women, abdominal pain men, vaginal bleeding, weakness, fever, dyspnea, syncope, headache, dizziness, GI bleed, back pain, seizure, CVA, palpatations, mental health, musculoskeletal)? @ -Differential Mental Health Depression, anxiety, bipolar, psychosis, schizophrenia, borderline personality, situational depression, adjustment disorder, behavioral disorder, brain tumor, malingering, substance abuse, encephalopathy, medication reaction, dementia, hypothyroidism, degenerative neurologic disorder, lupus.... This is not meant to be all-inclusive list EKG interpreted by me (3pts min.). @ -Not done X-rays interpreted by me (1pt min.). @ -[None done] CT interpreted by me (1pt min.). @ -[None done] U/S interpreted by me (1pt. min.). @ -[None done] What testing was considered but not performed or refused? (CT, X-rays, U/S, labs)? Why? @ -[None] What meds were considered but not given or refused? Why? @ -[None] Did you discuss the management of the patient with other professionals (professionals i.e. , PA, LABOR ARBITRATOR, lab, RT, psych nurse, public health social worker, complaints coordinator, teacher, safety instruction police officer, manager of case management)? Give summary @ -[No] Was smoking cessation discussed for >3mins.? @ -[No] Was critical care preformed (if so, how long)? @ -[No] Were there social determinants of health that impacted care today? How? (Homelessness, low income, unemployed, alcoholism, drug addiction, transportation, low edu. Level, literacy, decrease access to med. care, intermediate, rehab)? @ -[No] Was there de-escalation of care discussed even if they declined (Discuss DNR or withdrawal of care, Hospice)? DNR status @ -[No] What co-morbidities impacted this encounter? (DM, HTN, Smoking, COPD, CAD, Cancer, CVA, ARF, Chemo, Hep., AIDS, mental health diagnosis, sleep apnea, morbid obesity)? @ -[None] Was patient admitted / discharged? Hospital course, mention meds given and route, prescriptions, significant lab abnormalities, going to OR and other pertinent info. @ -[hospital course] Undiagnosed new problem with uncertain prognosis? @ -[No] Drug Therapy requiring intensive monitoring for toxicity (Heparin, Nitro, Insulin, Cardizem)? @ -[No] Were any procedures done? @ -[No] Diagnosis/symptom? @ -Anxiety, tremor Acute, or Chronic, or Acute on Chronic? @ -Acute Uncomplicated (without systemic symptoms) or Complicated (systemic symptoms)? @ -Uncomplicated Side effects of treatment? @ -[No] Exacerbation, Progression, or Severe Exacerbation? @ -[No] Poses a threat to life or bodily function? How? (Chest pain, [place], DC, pneumonia, PE, COPD, DKA, ARF, appy, cholecystitis, CVA, Diverticulitis, Homicidal, Suicidal, threat to staff... and all critical care pts) @ -[No] Disposition Clinical Impression: Acute anxiety, Tremor Disposition: HOME SELF-CARE Condition: Good Instructions (If sedation given, give patient instructions): Generalized Anxiety Disorder (ED) Additional Instructions: Follow-up with Dr. Coyne for management of neuroleptic medication Is patient prescribed a controlled substance at d/c from ED?: No Referrals: Niya Hopper MD [Primary Care Provider] - 1-2 days Lee Coyne MD [REFERRING] - 1-2 days Time of Disposition: 18:43
[2025-01-02] MEDS: LORazepam 2 MG/ML INJ IM STA (18:57)
== END 2025-01-02 18:58 | disposition home or self-care (01) ==
LOC: EC 18:16
DX: F41.9 Anxiety disorder, unspecified (principal); R25.1 Tremor, unspecified; F17.200 Nicotine dependence, unspecified, uncomplicated; Z91.011 Allergy to milk products; Z91.012 Allergy to eggs; Z91.018 Allergy to other foods; Z91.030 Bee allergy status; Z88.8 Allergy status to other drugs, medicaments and biological substances
CPT/HCPCS: 99283; 96372; J2060

== ENCOUNTER 2025-01-09 15:35 | Emergency (ER) | payer OTHER ==
[2025-01-09 15:40] VITALS: TEMP 98
--- NOTE | 2025-01-09 15:59 | ED ---
Anxiety HPI - General Chief Complaint: Anxiety Stated Complaint: anxiety,shakes Time Seen by Provider: 01/09/25 15:43 Source: patient, RN notes reviewed Mode of arrival: ambulatory Limitations: no limitations - History of Present Illness Initial Comments: This is a 39-year-old female who presents to the emergency department for anxiety. Patient states that she was at the movies and started having an anxiety attack with shaking and states that she needs something to help. Denies any suicidal or homicidal ideations. Patient has a history of anxiety and has been evaluated here for this several times in the past. MD Complaint: anxiety - Related Data Home Medications: Previous Rx's Medication Instructions Recorded ARIPiprazole IM [Abilify Maintena] 400 mg IM QMONTH #1 vial 07/03/17 ARIPiprazole [Abilify] 30 mg PO DAILY #14 tab 07/03/17 OXcarbazepine [Trileptal] 300 mg PO BID #60 tab 07/03/17 diphenhydrAMINE [Benadryl] 25 mg PO BID PRN #12 capsule 12/24/20 Allergies/Adverse Reactions: Allergies Allergy/AdvReac Type Severity Reaction Status Date / Time Beef Containing Products Allergy Unknown Verified 01/09/25 15:41 bupropion HCl Allergy Unknown Verified 01/09/25 15:41 [From Wellbutrin] fluphenazine [From Prolixin] Allergy Anaphylaxis Verified 01/09/25 15:41 loratadine [From Claritin] Allergy Unknown Verified 01/09/25 15:41 sertraline HCl [From Zoloft] Allergy Unknown Verified 01/09/25 15:41 soybean Allergy Rash/Hives Verified 01/09/25 15:41 venlafaxine [From Effexor] Allergy Unknown Verified 01/09/25 15:41 wheat Allergy Unknown Verified 01/09/25 15:41 egg AdvReac Unknown Verified 01/09/25 15:41 Milk Containing Products AdvReac Unknown Verified 01/09/25 15:41 (Dairy) [Milk Containing Products] Review of Systems ROS Statement: Those systems with pertinent positive or pertinent negative responses have been documented in the HPI. ROS Other: All systems not noted in ROS Statement are negative. Past Medical History Past Medical History: Asthma Additional Past Medical History / Comment(s): denies History of Any Multi-Drug Resistant Organisms: MRSA Date of last positivie culture/infection: 10/18/2012 MDRO Source:: Unknown Past Surgical History: Section Additional Past Surgical History / Comment(s): left knee pinning with Dr. Wong secondary to patellar fracture ACL injury Past Anesthesia/Blood Transfusion Reactions: No Reported Reaction Past Psychological History: ADD/ADHD, Anxiety, PTSD Smoking Status: Current every day smoker Past Alcohol Use History: None Reported Past Drug Use History: None Reported General Exam Limitations: no limitations General appearance: alert, anxious Head exam: Present: atraumatic, normocephalic, normal inspection Respiratory exam: Present: normal lung sounds bilaterally. Absent: respiratory distress, wheezes, rales, rhonchi, stridor Cardiovascular Exam: Present: regular rate, normal rhythm Neurological exam: Present: alert, oriented X3, CN II-XII intact Psychiatric exam: Present: anxious Skin exam: Present: warm, dry, intact, normal color. Absent: rash Course Vital Signs 01/09/25 01/09/25 15:37 16:25 Temperature 98.0 F 98.0 F Pulse Rate 112 H 111 H Respiratory 17 22 Rate Blood Pressure 119/82 116/86 O2 Sat by Pulse 95 99 Oximetry Medical Decision Making - Medical Decision Making This is a 39-year-old female who presents to the emergency department for anxiety. Was pt. sent in by a medical professional or institution? @ -No Did you speak to anyone other than the patient for history? @ -No Did you review nursing and triage notes? @ -Yes, and I agree, it is accurate with regards to the patient's symptoms. Were old charts reviewed? @ -No Differential Diagnosis? @ -Differential Mental Health Depression, anxiety, bipolar, psychosis, schizophrenia, borderline personality, situational depression, adjustment disorder, behavioral disorder, brain tumor, malingering, substance abuse, encephalopathy, medication reaction, dementia, hypothyroidism, degenerative neurologic disorder, lupus.... This is not meant to be all-inclusive list EKG interpreted by me (3pts min.)? @ -Not obtained X-rays interpreted by me (1pt min.)? @ -Not obtained CT interpreted by me (1pt min.)? @ -Not obtained U/S interpreted by me (1pt. min.)? @ -Not obtained What testing was considered but not performed? (CT, X-rays, U/S, labs)? Why? @ -None What meds were considered but not given? Why? @ -None Did you discuss the management of the patient with other professionals? @ -No Did you reconcile home meds? @ -No Was smoking cessation discussed for >3mins.? @ -No Was critical care preformed (if so, how long)? @ -No Were there social determinants of health that impacted care today? How? (Homelessness, low income, unemployed, alcoholism, drug addiction, transportation, low edu. Level, literacy, decrease access to med. care, skilled nursing, rehab)? @ -No Was there de-escalation of care discussed even if they declined? (Discuss DNR or withdrawal of care, Hospice)? @ -No What co-morbidities impacted this encounter? (DM, HTN, Smoking, COPD, CAD, Cancer, CVA, Hep., AIDS, mental health diagnosis, sleep apnea, morbid obesity)? @ -Anxiety Was patient admitted / discharged? @ -Discharged. Patient reported to be having a panic attack. However, her reported shaking appeared to be very intentional as opposed to being consistent with involuntary shaking that may be seen with a panic attack or something else. She denied any suicidal or homicidal ideations. She has also been evaluated here for this several times in the past. She was provided with a dose of Ativan with improvement in symptoms and discharged home in stable condition. Case discussed with ED attending Dr. Soto. Return precautions reviewed in depth, the patient is instructed to return to the emergency department with any new, worsening, or concerning symptoms. Patient verbalized understanding. Undiagnosed new problem with uncertain prognosis? @ -None Drug Therapy requiring intensive monitoring for toxicity (Heparin, Nitro, Insulin, Cardizem)? @ -None Were any procedures done? @ -None Diagnosis/symptom? @ -Panic attack Acute, or Chronic, or Acute on Chronic? @ -Acute Uncomplicated (without systemic symptoms) or Complicated (systemic symptoms)? @ -Uncomplicated Side effects of treatment? @ -None Exacerbation, Progression, or Severe Exacerbation] @ -Not applicable Poses a threat to life or bodily function? @ -No Disposition Clinical Impression: Panic attack Disposition: HOME SELF-CARE Instructions (If sedation given, give patient instructions): Generalized Anxiety Disorder (ED) Additional Instructions: Return to the emergency department with any new, worsening, or concerning symptoms. Follow up with your primary care provider in 1-2 days. Is patient prescribed a controlled substance at d/c from ED?: No Referrals: Niya Hopper MD [Primary Care Provider] - 1-2 days Time of Disposition: 15:58
[2025-01-09] MEDS: LORazepam 1 MG TAB PO STA (16:01)
[2025-01-09 16:26] VITALS: BP 116/86; PULSE 111; RESP 22
== END 2025-01-09 16:25 | disposition home or self-care (01) ==
LOC: EC 15:35
DX: F41.0 Panic disorder [episodic paroxysmal anxiety] (principal); F17.200 Nicotine dependence, unspecified, uncomplicated; Z88.8 Allergy status to other drugs, medicaments and biological substances; Z91.011 Allergy to milk products; Z91.012 Allergy to eggs; Z91.02 Food additives allergy status
CPT/HCPCS: 99283